=== PATIENT | male | born 1990 | race Two or more races ===

== ENCOUNTER 2018-05-28 10:36 | Emergency (ER) | payer SELFPAY ==
[~2018-05-28] VITALS: Ht 177.8 cm; Wt 63.9 kg
[2018-05-28 10:44] VITALS: BP 125/85
[2018-05-28] MEDS ORDERED: FLUORESCEIN OPHTHALMIC 1 MG STRIP ONE (11:07)
[2018-05-28] MEDS ORDERED: PROPARACAINE OPHTH 0.5%, 15ML ONE (11:08)
== END 2018-05-28 12:00 | disposition home or self-care (01) ==
LOC: ED 11:03
DX: H10.212 Acute toxic conjunctivitis, left eye (principal)
CPT/HCPCS: 99283